=== PATIENT | female | born 1940 | race Caucasian/White ===

== ENCOUNTER → 2018-02-02 | Outpatient (CLI) | payer OTHER, MEDICARE | LOC: FIMAGING 09:39 | PROVIDERS: ATTEND Internal Medicine | DX: I50.9 Heart failure, unspecified (principal) ==

== ENCOUNTER → 2018-02-10 | Outpatient (CLI) | payer OTHER, MEDICARE | LOC: BHFA 11:30 | PROVIDERS: ATTEND Internal Medicine Cardiovascular Disease | DX: R01.1 Cardiac murmur, unspecified (principal) ==

== ENCOUNTER 2018-07-28 05:04 | Observation (INO) | payer OTHER, MEDICARE ==
--- NOTE | 2018-07-28 05:12 | EDPHY ---
H & P Time Seen by Provider: 07/28/18 05:11 HPI/ROS: HPI CHIEF COMPLAINT: Hypertension, AFib, chest pressure HISTORY OF PRESENT ILLNESS: 77-year-old female, has a history of hypertension, hyperlipidemia, pre diabetes, no history of AFib, presents emergency with chest pressure, high blood pressure and AFib. Patient states that she recently had her blood pressure medication changed over lisinopril she has been on lisinopril for about a week. She was on propranolol before this but it was noted her blood pressure was running high. She states the past week she has had blood pressures in the systolic of 180s to 200s. She was told that if it goes over 200 to come to the emergency room. She had multiple recordings tonight and over the last 48 hr of blood pressures over 200. She does complain of some chest tightness and pressure. She arrived to the emergency room by private vehicle, upon arrival her blood pressure is 235 a full 172, very similar in both arms, additionally heart rate in the 130s to 140s appears to be in AFib. She does complain of chest tightness. No headache. She denies any history of cardiovascular disease except hypertension, no history of TIA or CVA or PA. Past Medical History: Hypertension, hyperlipidemia, pre diabetes Past Surgical History: Multiple orthopedic surgeries including recent back surgery. Social History: Lives half the year in [place] half the year in [place]. Denies drugs alcohol tobacco. She is here visiting for a . Family History: Noncontributory ROS REVIEW OF SYSTEMS: 10 Systems were reviewed and negative with the exception of the elements mentioned in the history of present illness. Exam Constitutional triage nursing summary reviewed, vital signs reviewed, awake/ alert. Heart rate 130s to 140s, blood pressure 235/172. Eyes normal conjunctivae and sclera, EOMI, PERRLA. HENT normal inspection, atraumatic, moist mucus membranes, no epistaxis, neck supple/ no meningismus, no raccoon eyes. Respiratory clear to auscultation bilaterally, normal breath sounds, no respiratory distress, no wheezing. Cardiovascular irregular, irregular rhythm, fast 130s, no murmur, no edema, distal pulses normal. Gastrointestinal soft, non-tender, no rebound, no guarding, normal bowel sounds, no distension, no pulsatile mass. Genitourinary no CVA tenderness. Musculoskeletal no midline vertebral tenderness, full range of motion, no calf swelling, no tenderness of extremities, no meningismus, good pulses, neurovascularly intact. Skin pink, warm, & dry, no rash, skin atraumatic. Neurologic awake, alert and oriented x 3, AAOx3, moves all 4 extremities equally, motor intact, sensory intact, CN II-XII intact, normal cerebellar, normal vision, normal speech. Psychiatric normal mood/affect. Heme/Lymph/Immune no lymphadenopathy. Differential Diagnosis: Differential diagnosis includes but is not limited to: Hypertensive urgency, hypertensive emergency, AFib with RVR, ACS, atypical chest pain, pneumothorax, pneumonia, pulmonary embolism, aortic dissection, congestive heart failure, tumor, musculoskeletal pain, esophageal pain, GERD, peptic ulcer disease, pancreatitis Medical Decision Making: Plan for this patient IV establishment night monitor obtain EKG and troponin, chest x-ray, basic blood work, IV Ativan for anxiety, nitroglycerin for chest pressure and high blood pressure, diltiazem IV bolus and diltiazem drip for AFib with RVR. If patient's blood pressure stays high she may need a Cardene drip. Patient need to be admitted the hospital for hypertensive urgency/chest pain/ AFib with RVR Re-evaluation: EKG interpretation by me on record in [employer] system. Impression time of EKG 5:18 a.m., AFib rate of 137, LVH present, PVCs present, ST depression in to 3 AVF and lateral leads V4 V5 V6 consistent with rate-related ST depression. No ST elevation 0615: Patient re-evaluated: Resting comfortably without any chest pain or shortness of breath at this time. Patient's heart rate is currently in the 93 range she still in AFib, blood pressure much improved 110/87. She received 1 dose of nitroglycerin, a dose of Ativan, and is on Dilt drip at this time. Plan for admission for hypertension urgency in AFib. Chest x-ray reviewed shows cardiomegaly. Otherwise unremarkable. Image interpreted by myself. Patient here with hypertensive urgency, with blood pressure is 200/100s, heart rate in the 140s with AFib with RVR. She responded well to Ativan, diltiazem bolus, diltiazem drip and nitroglycerin. Plan for admission the hospital for AFib with RVR. Hypertension control. I spoke with the hospitalist service Dr. Baker agrees to admit. Source: Patient Constitutional: Initial Vital Signs Temperature (C) 36.8 C 07/28/18 05:28 Heart Rate 132 H 07/28/18 05:28 Respiratory Rate 18 07/28/18 05:28 Blood Pressure 226/182 H 07/28/18 05:28 O2 Sat (%) 92 07/28/18 05:28 O2 Delivery Mode Room Air Allergies/Adverse Reactions: hydralazine Allergy (Verified 07/29/18 05:10) Hives Sulfa (Sulfonamide Antibiotics) Allergy (Verified 07/28/18 05:31) Home Medications: Medication Instructions Recorded Carboxymethylcellulose 1% [Refresh 1 drop EACHEYE DAILY PRN 07/28/18 Celluvisc (*)] Cholecalciferol Vit D3 [Vitamin D3 1,000 units PO DAILY 07/28/18 (*)] Lisinopril [Zestril 10 mg (*)] 10 mg PO HS 07/28/18 Luminas Pain Relief Patch 1 lalit TD DAILY PRN 07/28/18 Apixaban [Eliquis] 5 mg PO BID #60 tab 07/29/18 Famotidine [Pepcid 20 MG (*)] 20 mg PO BID tab 07/29/18 Metoprolol Tartrate [Lopressor 25 25 mg PO BID #60 tab 07/29/18 mg (*)] Medical Decision Making - Data Points Laboratory Results: Laboratory Results 07/28/18 05:40 07/28/18 05:40 Medications Given: Discontinued Medications Acetaminophen (Tylenol) 650 mg PO Q4HRS PRN PRN Reason: Pain, Mild/Fever, Can Take PO Stop: 01/24/19 06:23 Last Admin: 07/28/18 16:59 Dose: 650 mg Apixaban (Eliquis) 5 mg PO BID ALBERT Stop: 01/24/19 08:59 Last Admin: 07/29/18 08:28 Dose: 5 mg Carboxymethylcellulose (Refresh Celluvisc) 1 drop EACHEYE DAILY PRN PRN Reason: Dry Irritated Eyes Stop: 01/24/19 09:18 Last Admin: 07/29/18 00:54 Dose: 1 drop Cetirizine HCl (Zyrtec) 10 mg PO DAILY ALBERT Stop: 01/25/19 11:59 Last Admin: 07/29/18 12:19 Dose: 10 mg Cholecalciferol (Vitamin D) 1,000 units PO DAILY ALBERT Stop: 01/25/19 08:59 Last Admin: 07/29/18 08:29 Dose: 1,000 units Diltiazem HCl (Cardizem 25 Mg/5 Ml Vial) 15 mg IVP EDNOW ONE Stop: 07/28/18 05:25 Last Admin: 07/28/18 05:51 Dose: 15 mg Diphenhydramine HCl (Benadryl) 25 mg PO Q6HRS PRN PRN Reason: Itching Stop: 01/25/19 04:28 Last Admin: 07/29/18 04:39 Dose: 25 mg Famotidine (Pepcid) 20 mg PO BID ALBERT Stop: 01/25/19 08:59 Last Admin: 07/29/18 08:29 Dose: 20 mg Hydralazine HCl (Apresoline) 25 mg PO QID PRN PRN Reason: SBP>180 Stop: 01/25/19 00:43 Last Admin: 07/29/18 00:54 Dose: 25 mg Diltiazem/Dextrose (Diltiazem 125mg/125ml (Premix)) 125 mls @ 0 mls/hr IV EDNOW ONE; As Directed PRN Reason: Protocol Stop: 07/28/18 05:25 Last Admin: 07/28/18 06:03 Dose: 125 mls Sodium Chloride (Ns) 500 mls @ 1,000 mls/hr IV EDNOW ONE PRN Reason: Protocol Stop: 07/28/18 05:53 Last Admin: 07/28/18 06:04 Dose: 500 mls Magnesium Sulfate/Dextrose (Magnesium Sulf 1 Gm (Premix)) 100 mls @ 100 mls/hr IV ONCE ONE Stop: 07/28/18 07:48 Last Admin: 07/28/18 09:33 Dose: 100 mls Lisinopril (Zestril) 10 mg PO HS ALBERT Stop: 01/24/19 20:59 Last Admin: 07/28/18 21:12 Dose: 10 mg Lorazepam (Ativan Injection) 0.5 mg IVP EDNOW ONE Stop: 07/28/18 05:27 Last Admin: 07/28/18 05:50 Dose: 0.5 mg Metoprolol Tartrate (Lopressor) 25 mg PO BID ALBERT Stop: 01/24/19 08:59 Last Admin: 07/29/18 08:29 Dose: 25 mg Metoprolol Tartrate (Lopressor Injection) 5 mg IVP ONCE ONE Stop: 07/28/18 16:37 Last Admin: 07/28/18 16:59 Dose: 5 mg Nitroglycerin (Nitrostat) 0.4 mg SL EDNOW ONE Stop: 07/28/18 05:26 Last Admin: 07/28/18 05:49 Dose: 0.4 mg Potassium Chloride (Klor-Con) 40 meq PO ONCE ONE Stop: 07/28/18 06:50 Last Admin: 07/28/18 09:18 Dose: Not Given Potassium Chloride (Klor-Con) 40 meq PO ONCE ONE Stop: 07/28/18 09:01 Last Admin: 07/28/18 09:38 Dose: 40 meq Potassium Chloride (Klor-Con) 40 meq PO ONCE ONE Stop: 07/29/18 11:53 Last Admin: 07/29/18 12:19 Dose: 40 meq Point of Care Test Results: Chemistry 07/28/18 05:47 POC Troponin I 0.01 ng/mL ng/mL (0.00-0.08) Departure - Departure Disposition: [facility] Acute Clinical Impression: Atrial fibrillation with RVR, Hypertensive urgency Condition: Serious
[2018-07-28] MEDS ORDERED: DILTIAZEM HCL/D5W 125 ML IV ONE (05:24)
[2018-07-28] MEDS ORDERED: NS 500 ML IV ONE (05:24)
[2018-07-28] MEDS ORDERED: DILTIAZEM 25 MG/5 ML VIAL IVP ONE (05:24)
[2018-07-28] MEDS ORDERED: NITROGLYCERIN 0.4 MG BTL SL ONE (05:25)
[2018-07-28] MEDS ORDERED: LORazepam 2 MG/ML INJ IVP ONE (05:26)
[2018-07-28 05:52] LABS: PLATELET COUNT 261 10^3/uL (150-400)
[2018-07-28 06:00] LABS: INR 0.95 (0.83-1.16); PROTIME(PATIENT) 12.3 SEC (12.0-15.0)
[2018-07-28] MEDS ORDERED: ONDANSETRON DISINTEGRATING 4 MG TAB PO PRN (06:24)
[2018-07-28] MEDS ORDERED: ONDANSETRON 4 MG/2 ML VIAL IVP PRN (06:24)
[2018-07-28] MEDS ORDERED: ACETAMINOPHEN 325 MG TAB PO PRN (06:24)
[2018-07-28] MEDS ORDERED: ENOXAPARIN 100 MG/ML SYR SC ONE (06:26)
[2018-07-28] MEDS ORDERED: DILTIAZEM HCL/D5W 125 ML IV SCH (06:30)
[2018-07-28] MEDS ORDERED: POTASSIUM CL 20 MEQ TAB PO ONE ×2 (06:49→09:00)
[2018-07-28] MEDS ORDERED: MAGNESIUM SULF 1 GM/DEXTROSE 100 ML IV ONE (06:49)
--- NOTE | 2018-07-28 07:07 | PDGENHP ---
History and Physical - Chief Complaint Chest pressure, palpitations - History of Present Illness 77 yo F w/ hx of HTN and arthritis presents with chest pressure and palpitations. The patient tells me she has been feeling chest discomfort associated with palpitations for several weeks. She has also been noting elevated blood pressure readings. She has been in conversation with her PCP about these issues. She recently had propranolol changed to lisinopril 10 mg qD. In addition, she has been dealing with a flare of lower back pain. She has been treating this with a series of lower back steroid injections and nerve ablations. Her last steroid injection was about one week ago. During the process of this she has noted many elevated blood pressures, with systolic BP's occasionally over 200. Early this morning her SBP remained over 200 and her DBP over 100 so she came to the ED for evaluation. Upon arrival in the ED she was noted to be in AF w/ RVR with systolic BP's >200. She was placed on a diltiazem drip with bolus and her blood pressure and heart rate improved. She is asymptomatic at the time of my evaluation. She has no prior history of atrial fibrillation, this is a new diagnosis. Of note, she tells me she had a normal nuclear stress study and echocardiogram in March of this year while in [place]. Case discussed with ED physician Dr. Zhou; records reviewed and summarized above. History Information - Allergies/Home Medication List Allergies/Adverse Reactions: Sulfa (Sulfonamide Antibiotics) Allergy (Verified 07/28/18 05:31) Home Medications: Lisinopril 07/28/18 [Last Taken Unknown] Propranolol HCl 07/28/18 [Last Taken Unknown] I have personally reviewed and updated: family history, medical history - Past Medical History arthritis, hypertension - Surgical History Reports: spinal surgery - Family History Additional family history: Mother had aortic dissection - Social History Smoking Status: Never smoked Review of Systems Review of Systems: ROS: 10pt was reviewed & negative except for what was stated in HPI & below Physical Exam Physical Exam: Temp Pulse Resp BP Pulse Ox 36.8 C 109 H 18 110/57 L 94 07/28/18 05:28 07/28/18 06:11 07/28/18 06:11 07/28/18 06:11 07/28/18 06:11 Constitutional: no apparent distress, not in pain Eyes: PERRL, EOMI Ears, Nose, Mouth, Throat: moist mucous membranes, no oral mucosal ulcers Cardiovascular: irregularly irregular, tachycardia Respiratory: no respiratory distress, clear to auscultation Gastrointestinal: normoactive bowel sounds, soft, non-tender abdomen Skin: warm, normal color Musculoskeletal: full muscle strength, no muscle tenderness Neurologic: AAOx3, CN II-XII Intact Psychiatric: interacting appropriately, not anxious Lab Data & Imaging Review 07/28/18 05:40 07/28/18 05:40 WBC 9.87 10^3/uL (3.80-9.50) H 07/28/18 05:40 RBC 4.96 10^6/uL (4.18-5.33) 07/28/18 05:40 Hgb 15.2 g/dL (12.6-16.3) 07/28/18 05:40 Hct 44.8 % (38.0-47.0) 07/28/18 05:40 MCV 90.3 fL (81.5-99.8) 07/28/18 05:40 MCH 30.6 pg (27.9-34.1) 07/28/18 05:40 MCHC 33.9 g/dL (32.4-36.7) 07/28/18 05:40 RDW 14.1 % (11.5-15.2) 07/28/18 05:40 Plt Count 261 10^3/uL (150-400) 07/28/18 05:40 MPV 10.4 fL (8.7-11.7) 07/28/18 05:40 Neut % (Auto) 44.9 % (39.3-74.2) 07/28/18 05:40 Lymph % (Auto) 44.6 % (15.0-45.0) 07/28/18 05:40 [place] % (Auto) 7.0 % (4.5-13.0) 07/28/18 05:40 Eos % (Auto) 2.3 % (0.6-7.6) 07/28/18 05:40 Baso % (Auto) 0.8 % (0.3-1.7) 07/28/18 05:40 Nucleat RBC Rel Count 0.0 % (0.0-0.2) 07/28/18 05:40 Absolute Neuts (auto) 4.43 10^3/uL (1.70-6.50) 07/28/18 05:40 Absolute Lymphs (auto) 4.40 10^3/uL (1.00-3.00) H 07/28/18 05:40 Absolute Monos (auto) 0.69 10^3/uL (0.30-0.80) 07/28/18 05:40 Absolute Eos (auto) 0.23 10^3/uL (0.03-0.40) 07/28/18 05:40 Absolute Basos (auto) 0.08 10^3/uL (0.02-0.10) 07/28/18 05:40 Absolute Nucleated RBC 0.00 10^3/uL (0-0.01) 07/28/18 05:40 Immature Gran % 0.4 % (0.0-1.1) 07/28/18 05:40 Immature Gran # 0.04 10^3/uL (0.00-0.10) 07/28/18 05:40 PT 12.3 SEC (12.0-15.0) 07/28/18 05:40 INR 0.95 (0.83-1.16) 07/28/18 05:40 APTT 26.5 SEC (23.0-38.0) 07/28/18 05:40 Sodium 141 mEq/L (135-145) 07/28/18 05:40 Potassium 3.2 mEq/L (3.5-5.2) L 07/28/18 05:40 Chloride 106 mEq/L (97-110) 07/28/18 05:40 Carbon Dioxide 23 mEq/l (22-31) 07/28/18 05:40 Anion Gap 12 mEq/L (6-14) 07/28/18 05:40 BUN 12 mg/dL (7-23) 07/28/18 05:40 Creatinine 0.8 mg/dL (0.6-1.0) 07/28/18 05:40 Estimated GFR > 60 07/28/18 05:40 Glucose 159 mg/dL (70-100) H 07/28/18 05:40 Calcium 9.2 mg/dL (8.5-10.4) 07/28/18 05:40 Magnesium 1.7 mg/dL (1.6-2.3) 07/28/18 05:40 Total Bilirubin 0.8 mg/dL (0.1-1.4) 07/28/18 05:40 Conjugated Bilirubin 0.2 mg/dL (0.0-0.5) 07/28/18 05:40 Unconjugated Bilirubin 0.6 mg/dL (0.0-1.1) 07/28/18 05:40 AST 21 IU/L (14-46) 07/28/18 05:40 ALT 33 IU/L (9-52) 07/28/18 05:40 Alkaline Phosphatase 72 IU/L (38-126) 07/28/18 05:40 POC Troponin I 0.01 ng/mL (0.00-0.08) 07/28/18 05:47 NT-Pro-B Natriuret Pep 133 pg/mL (0-450) 07/28/18 05:40 Total Protein 6.5 g/dL (6.3-8.2) 07/28/18 05:40 Albumin 4.0 g/dL (3.5-5.0) 07/28/18 05:40 Visualized and Interpreted EKG results: Yes EKG Interpretation: Positive for: other (AF w/ RVR) Assessment & Plan Assessment: 77 yo F w/ hx of HTN and arthritis presents with elevated blood pressures and new AF w/ RVR. Plan: 1. Paroxysmal atrial fibrillation w/ RVR - HR>130s on admission. This is a new diagnosis for the patient but she tells me she has noted palpitations for several weeks. It is possible this was triggered by recent steroid injections. She had a normal nuclear stress study and echocardiogram in March of this year while in [place], per her report. [id number] of 4 denoting need for anticoagulation. - Observe in PCU - Monitor on telemetry - Diltiazem gtt for rate control - Lovenox 100 mg SC x1 for therapeutic AC initially - Cardiology consultation placed 2. HTN, uncontrolled - Recent worsening of BP control possibly related to recent increase in back pain and steroid injections. She is on lisinopril 10 mg daily as an outpatient. - Diltiazem for now as above - Continue home medications pending reconciliation 3. Back pain - Recently treated with steroid injections in [place]. Diet - NPO Code - Full Ppx - LMWH Dispo - Admit under observation status
--- NOTE | 2018-07-28 08:08 | GCON ---
[f rep st] CONSULTATION CARDIOLOGY CONSULTATION CHIEF COMPLAINT: Palpitations, hypertension. HISTORY OF PRESENT ILLNESS: This is a 77-year-old female with a history of hypertension, who has rec ently had a steroid back injection. She noticed immediately after the injection, her blood pressure started rising. She started having a racing heart rate. Of note, the patient has indicated though, that she has not been diagnosed with atrial fibrillation in the past. She has noticed that she has h ad multiple frequent days of palpitations. Unfortunately, this has not been caught on a Holter monit or, but she feels the symptoms she is having now are similar to what she had in the past. In the ER, she was found to have atrial fibrillation, RVR, and was started on a Cardizem drip. Currently, hear t rate is 100, blood pressure is 120/70, which is significantly reduced from her initial presentation . She feels much better. Denies any chest pain or shortness of breath at this time. PAST MEDICAL HISTORY: Significant for hypertension. HOME MEDICATIONS: Please see the patient's attached list. SOCIAL HISTORY: No smoking, no drinking. FAMILY HISTORY: Noncontributory. REVIEW OF SYSTEMS: Patient currently denies any visual changes. No headache. No ear pain. No neck pain. No throat pain. No nasal pain. No back pain. No chest pain. No abdominal pain. No lower extremity pain. PHYSICAL EXAM: VITAL SIGNS: Patient currently afebrile at 96, blood pressure currently 126/70, with a heart rate of 100, respirations 12, sat 95% on room air. HEENT: Pupils equal, round, reactive to light and accommodation. Extraocular movements intact. CARDIOVASCULAR: Irregularly irregular S1, S2. LUNGS: Clear to auscultation bilaterally. ABDOMEN: Soft, nontender. No guarding. EXTREMITIE S: No clubbing, no cyanosis, no edema. NEUROLOGIC: The patient is alert and oriented x3. LABORATORY VALUES: Currently show white count 9.8, hemoglobin 15.2, platelet count 261. INR 0.95. Sodium 141, potassium 3.2, creatinine 0.8. Troponins negative x1 set. EKG shows atrial fibrillation with nonspecific T-wave changes. This is with LVH. ASSESSMENT/PLAN: Atrial fibrillation/hypertension. At this time, the patient's blood pressure is mu ch better controlled. We will start her on Lopressor 25 p.o. twice daily and have the Cardizem drip stopped and we will check a cardiac echo. I have discussed with the patient about cardioversion vers us medical therapy. The patient would prefer to avoid cardioversion if possible, especially in light of the fact that she feels better at this time, and has indicated that these symptoms have common go ne multiple times in the past, which indicates she may have had a history of paroxysmal atrial fibril lation. We will continue with the p.o. Lopressor and up titrate as needed. Additionally, we will ad d in Eliquis 5 mg p.o. b.i.d., given her elevated CHADS2-VASc score, given her age, gender, and histo ry of hypertension. Further orders following clinical course. /[id number]/MODL
[2018-07-28] MEDS: METOPROLOL TARTRATE 25 MG TAB PO SCH ×2 (08:59→21:12)
[2018-07-28] MEDS: APIXABAN 5 MG TAB PO SCH ×2 (09:01→21:10)
[2018-07-28] MEDS ORDERED: CARBOXYMETHYLCELLULOSE 1% 0.4 ML DROPERETTE EACHEYE PRN (09:19)
--- NOTE | 2018-07-28 15:05 | ECHO ---
[email or web address] [address] [address] Main: [phone] Echocardiography Examination Transthoracic Name: JASON MARTINEZ MR#: [id number] Study Date: 07/28/2018 Study Time: 10:07 AM Date of : 1940 Age: 77 year(s) Height: 162.6 cm (64 in.) Weight: 99.79 kg (220 lb.) BSA: 2.04 m2 Gender: Female Examination: Echo Contrast: Image Quality: Adequate parasternal window, technically Rhythm: Normal sinus rhythm difficult apical window. Heart Rate: 60 bpm BP: 147 mmHg/72 mmHg Indication: atrial fibrillation and HTN Procedure Staff Referring Physician: Cytology Laboratory Manager: Tavia Calero [facility] Reading Physician: Girish Rivas MD Requesting Provider: Ordering Physician: Srikanth Bose MD Indication: atrial fibrillation and HTN Measurements Chambers AV/MV Label Value Normal Value Label Value Normal Value LVOT Vmax 0.83 m/s (0.7m/s - 1.1m/s) AV PGmax 6 mmHg LVOTd 2 cm (1.8cm - 2cm) AV Vmax 1.27 m/s LVDd, 2D 4.8 cm (3.9cm - 5.3cm) KOJO (Vmax) 2.1 cm2 LVDs, 2D 3.4 cm (2.1cm - 4cm) MV E Vmax 0.66 m/s IVSd, 2D 1.2 cm (0.6cm - 1.1cm) MV A Vmax 0.44 m/s LVPWd, 2D 1.2 cm MV E/A 1.5 LVEF, BP 57 % (55% - 70%) MV E/E' lateral 11.9 LVEF, 2D 58 % (54% - 74%) MV E/E' septal 15.7 (0.45 - 1.25) RVDd, 2D 2.8 cm (1.9cm - 3.8cm) MV DT 243 ms TAPSE 2 cm MV E' septal 0.04 m/s LA Volume, BP 58 ml (22ml - 52ml) MV E' lateral 0.06 m/s LADs, 2D 3.9 cm (2.7cm - 3.8cm) MV E/E' mean 13.2 LAESV index, BP 28.4 ml/m2 MV E' mean 0.05 m/s RA Area 14 cm2 TV/PV Additional Vessels Label Value Normal Value Label Value Normal Value RA Pressure 5 mmHg AoAsc 3.2 cm RVSP 38 mmHg AoRoot, 2D 3.1 cm (1.4cm - 2.6cm) TR Pmax 33 mmHg Patient: JASON MARTINEZ Study Date: 07/28/2018 Page 1 of 3 10:07 AM TR Vmax 2.88 m/s CT End garcia Karan 0.84 cm/s PV PGmax 3 mmHg PV Vmax, Caliper 0.84 m/s (0.6m/s - 0.9m/s) Conclusions Left Ventricle: CONCLUSIONS:1)Normal LV size and systolic function with a LVEF of 57% and normal wall motions.2)Mild concentric LVH with mild diastolic dysfunction noted.3)MIld left atrial enlargement noted.4)MIld MR without MV prolapse.5)Mild TR with estimated normal PA pressures.6)Small pericardial effusion noted with no tamponade signs. Findings Left Ventricle: Left ventricle is normal in size. CONCLUSIONS: 1)Normal LV size and systolic function with a LVEF of 57% and normal wall motions. 2)Mild concentric LVH with mild diastolic dysfunction noted. 3)MIld left atrial enlargement noted. 4)MIld MR without MV prolapse. 5)Mild TR with estimated normal PA pressures. 6)Small pericardial effusion noted with no tamponade signs. EF evaluated by EF (biplane Julien's). The ejection fraction, measured by Simpsons method, is 57 %. There is mild concentric left ventricular hypertrophy. There are no regional wall motion abnormalities. Grade I Diastolic Dysfunction. Left ventricular hypertrophy is noted. Right Ventricle: Normal size right ventricle. Right ventricular wall thickness is increased. Right ventricular systolic function is normal. Left Atrium: The left atrium is mildly dilated. Right Atrium: The right atrium is normal in size. Mitral Valve: Mild mitral regurgitation. No mitral valve stenosis. There is mild mitral thickening. Aortic Valve: The aortic valve is structurally normal and trileaflet. No aortic valve regurgitation. There is no aortic stenosis. Tricuspid Valve: Tricuspid valve leaflets are structurally normal. Mild tricuspid regurgitation. Right Ventricular systolic pressure is measured at 38 mmHg. Pulmonary artery pressure is mildly increased. Pulmonic Valve: Pulmonic leaflets are structurally normal. Mild pulmonic valve regurgitation is present. Aorta: The aortic root size in 2D measures 3.1 cm. The aortic root exhibits normal size. The ascending aorta measures 3.2 cm. Ascending aorta is normal in size. Aorta Measurements AoRoot, 2D is 3.1 cm. IVC: The inferior vena cava is normal in size and course. Pericardium: A small pericardial effusion was identified. Exam Details Procedure Ordered: Echo Procedure Status: Routine study Image Quality: Adequate parasternal window, technically difficult apical window. Facility Location: Cardiac Echo 1 Patient: JASON MARTINEZ Study Date: 07/28/2018 Page 2 of 3 10:07 AM (No Signature Object) Patient: JASON MARTINEZ Study Date: 07/28/2018 Page 3 of 3 10:07 AM [id number]
[2018-07-28] MEDS ORDERED: METOPROLOL TARTRATE 5 MG/5 ML INJ IVP ONE (16:36)
[2018-07-28] MEDS ORDERED: LISINOPRIL 10 MG TAB PO SCH (21:00)
[2018-07-28] MEDS ORDERED: MAG HYDROX/AL HYDROX/SIMETH 30 ML UDCUP PO PRN (23:18)
--- NOTE | 2018-07-28 23:19 | HOSPPROG ---
Hospitalist Progress Note Assessment/Plan: PAF AF RVR - resolved HTN, uncontrolled -gave an extra dose of metoprolol today. -On metoprolol 25mg BID (new) -Started on Eliquis. Indigestion -add Pepcid, prn Maalox Back pain -s/p steroid injection. Observe overnight. DC to home in AM. __ Subj: pt seen this afternoon, c/o stomach upset. Feels generally weak, as BP became high again (SBP 190). Obj: General: The patient is a female who is alert and in no acute distress. HEENT: normocephalic, extraocular movements intact, conjunctivae clear. Mucous membranes moist. Neck: trachea midline, no visible masses, no external lesions. CV: +S1/S2, RRR, no MRG. Resp: unlabored, CTAB no RRW. Abd: soft and nondistended. Musculoskeletal: Normal gait. Neuro: cranial nerves II - XII grossly intact. Intact gross motor and sensory function. Psych: appropriate mood/affect. Skin: No pallor. Heme/lymph: No peripheral edema. Objective: Vital Signs Temp Pulse Resp BP Pulse Ox 36.9 C 64 16 184/88 H 90 L 07/28/18 18:58 07/28/18 21:12 07/28/18 18:58 07/28/18 21:12 07/28/18 18:58 07/27/18 07/28/18 07/29/18 05:59 05:59 05:59 Intake Total 360 Output Total 300 Balance 60 PT 12.3 SEC (12.0-15.0) 07/28/18 05:40 INR 0.95 (0.83-1.16) 07/28/18 05:40 ICD10 Worksheet Patient Problems: Problems Problem Status Onset Atrial fibrillation with RVR Acute Hypertensive urgency Acute
[2018-07-29] MEDS ORDERED: hydrALAZINE 25 MG TAB PO PRN (00:44)
[2018-07-29] MEDS ORDERED: diphenhydrAMINE 25 MG CAP PO PRN (04:29)
--- NOTE | 2018-07-29 08:23 | CPEKG ---
Test Reason : OPEN Blood Pressure : / mmHG Vent. Rate : 137 BPM Atrial Rate : 125 BPM P-R Int : 100 ms QRS Dur : 087 ms QT Int : 311 ms P-R-T Axes : 000 033 -54 degrees QTc Int : 470 ms Atrial fibrillation Paired ventricular premature complexes LVH with secondary repolarization abnormality ST depression, probably rate related Confirmed by Nik Plata ([id number]) on 07/29/2018 8:23:10 AM Referred By: Nik Plata Confirmed By:Nik Plata
[2018-07-29] MEDS: APIXABAN 5 MG TAB PO SCH (08:28)
[2018-07-29] MEDS: METOPROLOL TARTRATE 25 MG TAB PO SCH (08:29)
[2018-07-29] MEDS ORDERED: FAMOTIDINE 20 MG TAB PO SCH (09:00)
[2018-07-29] MEDS ORDERED: CHOLECALCIFEROL VIT D3 1,000 UNITS TAB PO SCH (09:00)
--- NOTE | 2018-07-29 09:04 | PDCARPN ---
Cardiology Progress Note Chief Complaint: Patient with hives this morning Assessment/Plan: Assessment: Patient is a 77 y/o female with history of HTN, but no CAD, HLP, or DM, who presented to [facility] with complaints of racing heart and palpitations - both of which were noted after recent steroid injection to the back. Elevated blood pressures were also noted, and have been a recent issue for the patient. In the past, with palpitations, Propanolol had been taken, but at present, this therapy has not been successful with palpitation OR reduction in blood pressures. Telemetry with newly noted atrial fibrillation and rapid ventricular response. Diltiazem drip was started, and patient was moved to the floor. This morning, the patient with concerns about hives. She believes that some "injection" of medication in the ER was likely cause (hydralazine is current suspect). Heart rate slowed overnight, and by telemetry assessment, appears to be in normal sinus rhythm. Echocardiography was performed yesterday with normal systolic function, normal wall motion, and no significant valve pathology. Patient spends have her year in [place], and the other half here in [place]. Cardiology has been following the patient in [place] (echo, stress testing, and holter), without pathology noted (per patient reports). Plan: (1) Would continue therapy on CCB (oral) with diltiazem (2) Given the [id number] score of 4 (age, sex, and HTN), would continue therapy on Eliquis, and upon return to [place] (return trip planned for Tuesday) , would have further discussions about CVA prophylaxis (3) More aggressive monitoring (and treatment of HTN is recommended) (4) Consideration for outpatient sleep study with the newly noted atrial fibrillation (5) Regular and routine exercise (as tolerated) (6) Would have patient establish with [facility] with her return given the evolution of cardiac issues. Subjective: No cardiovascular complaints, but concerns about current hives Objective: Vital Signs (8 Hrs) Temp Pulse Resp BP Pulse Ox 07/29/18 07:31 36.5 C 66 20 168/78 H 93 07/29/18 04:00 36.4 C 57 L 18 159/86 H 91 L 07/29/18 02:30 83 L Intake/Output (24 Hrs) 05/03/19 05/04/19 05/05/19 05:59 05:59 05:59 Intake Total 360 Output Total 700 Balance -340 Intake: Oral (ml) 360 Output: Urine (ml) 700 Toilet 700 Other: Weight 87.2 kg Number of Voids Toilet 1 Result Diagrams: 07/28/18 05:40 07/28/18 05:40 EKG: atrial fibrillation with RVR Telemetry: normal sinus rhythm with rate of 65-70 bpm Echocardiogram: normal LVEF, mild concentric LVH, mild MR, TR - Physical Exam Constitutional: WDWN, healthy appearing, no apparent distress, obese Eyes: PERRL, EOMI Ears, Nose, Mouth, Throat: moist mucous membranes Cardiovascular: regular rate and rhythm, no murmurs, no rubs, no gallops, pulses symmetric bilat, No jugular vein distention Peripheral Pulses: 2+: dorsalis-pedis (R), dorsalis-pedis (L) Respiratory: clear to auscultate bilat, no crackles, no wheezes Gastrointestinal: normoactive bowel sounds Skin: no edema, other (hives) Musculoskeletal: no muscular tenderness Neurologic: AAOx3, CN II-XII grossly intact Psychiatric: cooperative, interactive, following commands ICD10 Worksheet Patient Problems: Problems Problem Status Onset Atrial fibrillation with RVR Acute Hypertensive urgency Acute
[2018-07-29 11:25] VITALS: BP 174/74
[2018-07-29] MEDS ORDERED: POTASSIUM CL 20 MEQ TAB PO ONE (11:52)
[2018-07-29] MEDS ORDERED: CETIRIZINE 10 MG TAB PO SCH (12:00)
--- NOTE | 2018-07-29 12:25 | PDDCSUM ---
Discharge Summary Discharge Summary: Diagnosis: PAF AF w/ RVR, resolved HTN, uncontrolled Indigestion Chronic back pain, s/p steroid injection Consultants: Cardiology - Dr. Srikanth Bose and Dr. Abdoul Gunn. Hospital Course: The patient is a 77yo F who presented to [facility] with chest pressure, palpitations, and accelerated hypertension (BP 200s/100) for several weeks. She had been dealing with a flare of chronic low back pain and had received a steroid injection 1 week prior to presentation. In the ED, she was found to be in AF w/ RVR and noted to have SBP >200. She was promptly put on a diltiazem bolus and drip and full dose Lovenox. Shortly after, her rhythm converted to NSR. Echocardiogram revealed no valvular abnormalities and a normal LVEF. Patient said she has had a cardiac stress test recently with her [employer] in [place]. Cardiology was consulted and recommended patient remain on anticoagulation with Eliquis. Initially she was recommended to be on diltiazem, but because her blood pressure continued to be uncontrolled the [employer] opted to have her on metoprolol. The patient received a dose of IV hydralazine for high BP, which caused her to get hives. Hydralazine was added to her allergy list. She was noted to have SpO2 83% one time on her 2nd night, but the rest of her readings were in the mid90s throughout hospitalization. She reported indigestion and was given Maalox and Pepcid. The patient was feeling much better and wanted to go home after 2 days in the hospital. She denied dizziness, headache, or other symptoms of high blood pressure/bradycardia when she was discharged. Her HR was in the upper 50s and 60s at the time of discharge and BP ranged from [id number]. She understood and accepted the risks of continued high blood pressure (>160/90) including stroke, heart disease, and other organ damage. She was discharged to home with plans to follow up with her outpatient providers for continued medication management. Meds: Resume home meds lisinopril, Luminas pain patch, vit D, and lubricating eyedrops. New meds: metoprolol tartrate 25mg po BID, Eliquis 5mg po BID, and famotidine 20mg po BID. Special instructions: -Recommend to get an outpatient sleep study because your oxygen saturation was noted to drop at night. -Goal blood pressure < 140/90 for generally healthy patients. Cardiology typically wants blood pressure to be controlled more strictly (<130/88). Keep these parameters in mind when you check your blood pressure. -Maintain a BP log and measure BP different times throughout the day. Bring the log of BPs with you to your next doctor's visit to help with medication adjustment. -BP >160/90 comes with high risk of complications, like strokes (either ischemic or hemorrhagic -- both of which you are already a higher risk). -Go to the nearest hospital for severe or concerning symptoms -- stroke-like ( slurred speech, weakness, numbness, confusion), severe HU, dizziness, etc. Followup: [employer] in 2 weeks. PCP in 1 week.
--- NOTE | 2018-07-29 14:19 | ASDISCHSUM ---
Discharge Information Plan Status:Home with No Needs Medically Cleared to Leave:07/29/2018 Discharge Date:07/29/2018 12:45 PM CM D/C Disposition:Home, Routine, Self-Care ADT D/C Disposition:Home, Routine, Self-Care Projected Discharge Date:07/29/2018 12:45 PM Transportation at D/C: Discharge Delay Reason: Follow-Up Date:07/29/2018 12:45 PM Discharge Slot: Final Diagnosis: Placement Information Patient Contact Information Contact Name:CATARINA Relationship: Address:[address] [place] Work Phone: City:[place] Alternate Phone: State/Zip Code:[place] [address] Email: Financial Information Financial Class:Medicare Primary Plan Desc:MEDICARE OUTPATIENT Primary Plan Number:[id number] Secondary Plan Desc:ISIDORO/RONY SUPPLEMENT Secondary Plan Number:[id number] Assessment Information LACE LACE Length of stay for Answers: 1 day current admission Acuity / Level of Answers: No Care: Did the patient have an inpatient admission? Comorbidities - select Answers: Diabetes (uncontrolled or all that apply controlled) Other Notes: HTN; HLD # of Emergency department Answers: 1-2 visits in the last 6 months Score: 4 Date Signed: 07/29/2018 02:17 PM Electronically Signed By:Izzy Maya RN Intervention Information Intervention Type:ANABEL-Signed Date of Service:07/28/2018 11:09 AM Patient Type:Observation Staff Member:Namrata Silvestre Hours: Discipline: Severity: Comment:
== END 2018-07-29 12:45 | disposition home or self-care (01) ==
LOC: F2W 07:58
PROVIDERS: ADMIT Student in an Organized Health Care Education/Training Program; ATTEND Internal Medicine
DX: I10 Essential (primary) hypertension (principal); I48.0 Paroxysmal atrial fibrillation; M54.5 Low back pain; E78.5 Hyperlipidemia, unspecified; R73.03 Prediabetes; M19.90 Unspecified osteoarthritis, unspecified site
CPT/HCPCS: 71045; 93005; 93306; 96365; 96366; 96375; 99285; G0378; J2060; J3475; 84484-ER; J2405